=== PATIENT | female | born 1995 | race Caucasian/White ===

== ENCOUNTER 2019-12-16 16:30 | Emergency (ER) | payer OTHER, SELFPAY ==
[2019-12-16 16:40] VITALS: BP 127/73
[2019-12-16 16:50] LABS: BASO % 0.3 % (0.0-1.0); EOS % 0.3 % (0.0-3.0); HEMATOCRIT 31.8 % (36.0-47.0); HEMOGLOBIN 9.7 g/dl (12.0-15.5); LYMPH # 1.5 10^3/uL (1.5-5.0); LYMPH % 14.4 % (24.0-44.0); MEAN CORPUSCULAR HEMOGLOBIN 25.5 pg (27.0-33.0); MEAN CORPUSCULAR HGB CONC 30.5 g/dl (32.0-36.5); MEAN CORPUSCULAR VOLUME 83.7 fl (80.0-96.0); MONO # 0.9 10^3/uL (0.0-0.8); NEUTROPHILS # 8.1 10^3/uL (1.5-8.5); NEUTROPHILS % 76.2 % (36.0-66.0); PLATELET COUNT, AUTOMATED 222 10^3/uL (150-450); WHITE BLOOD COUNT 10.6 10^3/uL (4.0-10.0)
[2019-12-16 17:22] LABS: BLOOD UREA NITROGEN 5 MG/DL (7-18); CALCIUM LEVEL 8.3 MG/DL (8.5-10.1); CARBON DIOXIDE LEVEL 24 MEQ/L (21-32); CHLORIDE LEVEL 107 MEQ/L (98-107); GLOMERULAR FILTRATION RATE > 60.0 (>60); GLUCOSE, FASTING 71 MG/DL (70-100); POTASSIUM SERUM 3.7 MEQ/L (3.5-5.1); SODIUM LEVEL 140 MEQ/L (136-145)
[2019-12-16] MEDS ORDERED: PRENTAB9 PO (18:57)
[2019-12-16] MEDS ORDERED: IRON27TA2 PO (18:57)
== END 2019-12-16 16:50 | disposition admitted as inpatient to this hospital (09) ==
LOC: M ED 16:30
DX: O9A.213 Injury, poisoning and certain other consequences of external causes complicating pregnancy, third trimester (principal); R10.9 Unspecified abdominal pain; S10.91XA Abrasion of unspecified part of neck, initial encounter; O16.3 Unspecified maternal hypertension, third trimester; Y04.8XXA Assault by other bodily force, initial encounter; Y92.098 Other place in other non-institutional residence as the place of occurrence of the external cause; Z3A.34 34 weeks gestation of pregnancy

== ENCOUNTER 2019-12-16 17:09 | Outpatient (CLI) | payer SELFPAY ==
[~2019-12-16] VITALS: Ht 170.2 cm; Wt 89.8 kg
[2019-12-16 17:14] VITALS: BP 131/77
[2019-12-16 18:56] VITALS: BP 128/78
[2019-12-16] MEDS ORDERED: IRON27TA2 PO (18:57)
[2019-12-16] MEDS ORDERED: PRENTAB9 PO (18:57)
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
== END 2019-12-16 20:40 | disposition home or self-care (01) ==
LOC: M LDO 17:09
PROVIDERS: ATTEND Obstetrics & Gynecology
DX: O36.8130 Decreased fetal movements, third trimester, not applicable or unspecified (principal); Z3A.34 34 weeks gestation of pregnancy
CPT/HCPCS: 59025; 76815; 76819; 76820; G0378; G0463